=== PATIENT | male | born 1940 | race Asian ===

== ENCOUNTER → 2017-01-20 | Outpatient (CLI) | payer OTHER, MEDICAID ==
[~2017-01-20] MED LIST: ACET-784 PO; ALPR0.5T8 PO; AMLO-315 PO; ASPI81TA42 PO; ATOR10TA84 PO; BISOPROLOL PO; DUTA.5 PO; EQUATE PO; FEBU40T PO; METF500T7 PO; OLME40 PO; TRAZ-144 PO; [UNRECOGNIZED DRUG - OTHER] PO
== END | disposition home or self-care (01) ==
LOC: RADPV 13:50
PROVIDERS: ATTEND Internal Medicine Nephrology
DX: N18.4 Chronic kidney disease, stage 4 (severe) (principal); N28.1 Cyst of kidney, acquired; K76.89 Other specified diseases of liver
CPT/HCPCS: 76770

== ENCOUNTER → 2017-05-14 | Outpatient (CLI) | payer OTHER | END | disposition home or self-care (01) | LOC: RADPV 09:12 | PROVIDERS: ATTEND Internal Medicine Nephrology | DX: R22.41 Localized swelling, mass and lump, right lower limb (principal); R22.42 Localized swelling, mass and lump, left lower limb | CPT/HCPCS: 93970 ==